=== PATIENT | female | born 1985 | race Two or more races ===

== ENCOUNTER 2017-07-03 11:59 | Emergency (ER) | payer SELFPAY ==
[2017-07-03 12:32] VITALS: BP 109/64; PULSE 76; RESP 18; TEMP 97.6; O2SAT 100
--- NOTE | 2017-07-03 12:46 | ED PDOC ---
HPI: Eye Injury/Pain Chief Complaint (Provider): Right eye pain and back pain History Per: Patient History/Exam Limitations: no limitations Onset/Duration Of Symptoms: Days (weeks) Current Symptoms Are (Timing): Still Present Quality: "Pain" Wears Contact Lens?: No Associated Symptoms: Pain, Swelling, Discharge From Eye (watery) Additional Complaint(s): Celine Luz is a 32 year old female who presents to the emergency department complaining of right eye pain x 4 days associated with watery and purulent discharge. Patient was started on a combination of steroid and antiobiotic drop and states that this med has not helped eye infection despite her using the drops for the past 4 days. Patient states as of yesterday she noticed swelling to right car-orbital area as well. Patient denies vision changes or FB sensation. She states that she usually wears contacts but has not been wearing them since eye discomfort started. Patient denies symptoms to left eye. Patient also has secondary complaint of right sided upper back pain for 3 days. She was seen by PMD and was started on valtrez 2 days ago for possible shingles. Patient states that she has shingles last year in the same spot as where she is having pain and the pain feels the same however, she has no rash to same area. Patient denies trauma to area. In addition to valtrex her PMD gave her gabapentin for the pain but this has not helped. Patient states that she has also tried motrin but this has not helped either. PMD: Dr. Aguilar <Kellee Santillan - Last Filed: 07/03/17 13:07> <Trent Payne - Last Filed: 07/04/17 09:55> Time Seen by Provider: 07/03/17 12:33 Chief Complaint (Nursing): Eye Problem Past Medical History Reviewed: Historical Data, Nursing Documentation, Vital Signs Vital Signs: Last Vital Signs Temp 97.6 F 07/03/17 12:27 Pulse 76 07/03/17 12:27 Resp 18 07/03/17 12:27 BP 109/64 07/03/17 12:27 Pulse Ox 100 07/03/17 12:27 - Medical History PMH: No Chronic Diseases - Surgical History Surgical History: No Surg Hx - Family History Family History: States: No Known Family Hx - Living Arrangements Living Arrangements: With Friends/Others - Social History Current smoker - smoking cessation education provided: No Alcohol: None Drugs: Denies <Kellee Santillan - Last Filed: 07/03/17 13:07> Vital Signs: Last Vital Signs Temp 97.6 F 07/03/17 12:27 Pulse 76 07/03/17 12:27 Resp 18 07/03/17 12:27 BP 109/64 07/03/17 12:27 Pulse Ox 100 07/03/17 13:46 <Trent Payne - Last Filed: 07/04/17 09:55> - Allergies Allergies/Adverse Reactions: Allergies Allergy/AdvReac Type Severity Reaction Status Date / Time avocado Allergy PAIN Verified 07/03/17 12:27 banana Allergy PAIN Verified 07/03/17 12:27 erythromycin base Allergy VOMITING Verified 07/03/17 12:27 fructose Allergy PAIN Verified 07/03/17 12:27 nut - unspecified Allergy ANAPHYLAXIS Verified 07/03/17 12:27 Review of Systems ROS Statement: Except As Marked, All Systems Reviewed And Found Negative Constitutional: Negative for: Fever, Chills Eyes: Positive for: Other (right eye pain) Cardiovascular: Positive for: Chest Pain Respiratory: Negative for: Cough Gastrointestinal: Negative for: Nausea, Vomiting Musculoskeletal: Positive for: Back Pain (right upper back) Skin: Negative for: Rash <Kellee Santillan - Last Filed: 07/03/17 13:07> Physical Exam - Reviewed Nursing Documentation Reviewed: Yes Vital Signs Reviewed: Yes - Physical Exam Appears: Positive for: Well, Non-toxic Skin: Positive for: Normal Color. Negative for: Rash Eye Exam: Positive for: EOMI, PERRL, Other (Mild periorbital erythema and swelling noted, mild conjunctival injection noted to right eye, no gross foreign body, left eye is normal) Back: Positive for: Other (Tenderness to right paraspinal region with minimal swelling noted, no erythema, no rash) Neurologic/Psych: Positive for: Alert, Oriented <Kellee Santillan - Last Filed: 07/03/17 13:07> - Reviewed Vital Signs Reviewed: No (WNL) <PayneTrent - Last Filed: 07/04/17 09:55> - Laboratory Results Urine POC: Negative (patient refused test, states she is certain she is not ) - ECG O2 Sat by Pulse Oximetry: 100 (RA) Pulse Ox Interpretation: Normal <Kellee Santillan - Last Filed: 07/03/17 13:07> - Progress ED Course And Treament: I performed the hx and physical exam of the patient and discussed their mgt with the PA student. I reviewed the PA student's NOTE and agree with the assessment and plan of care. i was asked by the PA to evaluate patient upon patient's request. with further inquiry/evaluation of the patient, i inform the patient that staining her affected eye would allow me to instruct her wether her concern about possible shingles into her eye, as well as other plausible pathologies, are valid; and because her mid back pain radiates to her chest, performing an ekg and lab tests as well as possible xrays may provided further insight into what's causing her pain and it would at least r/o more dangerous/emergent diagnosis; pt was tearful and did not agree with the recommendations; pt became agitated and states she would like to leave and seek another evaluation at another institution; pt states she has never been treated like this before. I apologized to the patient with regards on how she feels and attempt to ask her to stay and complete her evaluation, pt did not want to stay; pt would like to leave AMA you are leaving against medical advice potential life-threatening illness remains and pt can lose limb/or worse case, can you are to see your doctor as soon as possible if you change your mind, you are encouraged to return to ED immediately for further care/management <Trent Payne - Last Filed: 07/04/17 09:55> Medical Decision Making Medical Decision Making: Initial Impression: 32 year old female with right eye pain and right upper back pain Plan: Patient refuses test, she states she is currently menstruating and denies concern for Visual Acuity - L 20/100, R 20/200, Both 20/70 - patient does not have contact lenses in nor does she have her glasses Patient became upset with PA and stated that the information PA was explaining was not consistent with the information that she researched on the internet. Patient started to cry and asked to speak with MD. PA asked if floroscein exam of eye can be completed and patient refused, stating she wished to speak with the MD first. Dr Payne made aware and spoke with patient further at bedside. Dr. Payne also has extensive discussion with patient at bedside regarding treatment options and patient became upset and refused further work-up. She would not allow Dr. Payne to do eye exam or any other tests. Patient was asked to sign out against medical advice. The risks and dangers of signing out AGAINST MEDICAL ADVICE were discussed with patient including but not limited to worsening of current condition and possible . Patient verbalized understanding of these risks and still wishes to leave AGAINST MEDICAL ADVICE. Scribe Attestation: Documented by Sanjeev Martin, acting as a scribe for Kellee Santillan PA-C Provider Scribe Attestation: All medical record entries made by the Scribe were at my direction and personally dictated by me. I have reviewed the chart and agree that the record accurately reflects my personal performance of the history, physical exam, medical decision making, and the department course for this patient. I have also personally directed, reviewed, and agree with the discharge instructions and disposition. <Kellee Santillan - Last Filed: 07/03/17 13:07> Disposition - Patient ED Disposition Is Patient to be Admitted: No - Disposition Disposition: Against Medical Advice Disposition Time: 13:12 <Kellee Santillan - Last Filed: 07/03/17 13:07> <Trent Payne - Last Filed: 07/04/17 09:55> - Clinical Impression Clinical Impression: Eye pain, Back pain, Left against medical advice - Disposition Condition: STABLE Additional Instructions: Follow up with primary care doctor and digital advertising specialist. Instructions: Upper Back Pain, Leaving Against Medical Advice Forms: [employer] (A[place]ijani) Print Language: BELARUSIAN
== END 2017-07-03 13:47 | disposition left against medical advice (07) ==
LOC: H.ER 11:59
DX: M54.9 Dorsalgia, unspecified (principal); H57.11 Ocular pain, right eye; Z88.1 Allergy status to other antibiotic agents